=== PATIENT | female | born 1970 | race American Indian/Alaskan Native ===

== ENCOUNTER 2018-12-04 09:57 | Emergency (ER) | payer SELFPAY ==
[2018-12-04] MEDS ORDERED: NORMODYNE PO ONE (10:50)
--- NOTE | 2018-12-04 10:57 | Emergency Department Report ---
ED General Adult HPI - General Chief complaint: High BP Stated complaint: HBP Time Seen by Provider: 12/04/18 10:31 Source: patient Mode of arrival: Ambulatory Limitations: No Limitations - History of Present Illness Initial comments: Mrs. Rubio is a 48 -year-old female with history of tobacco abuse who presents with elevated blood pressure reading. During a routine dental appointment, it was discovered that she had severely elevated blood pressure. Her blood pressure in the emergency Department is currently 216/111. She has not primary care as an adult. Never prevously diagnosed with HTN. SHe does not have a physician. She recently obtained health Insurance. She Is Currently Symptom-Free. She Does Not Know Her Family Medical History. She Grew up in [place]. 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 No Recent Weight Loss. No Headache. No Visual Changes. -: unknown Severity scale (0 -10): 0 Improves with: none Worsens with: none Associated Symptoms: denies other symptoms Treatments Prior to Arrival: none - Related Data Previous Rx's Medication Instructions Recorded Last Taken Type amLODIPine [Norvasc] 5 mg PO DAILY 30 Days #30 tab 12/04/18 Unknown Rx hydroCHLOROthiazide [HCTZ] 25 mg PO QDAY 30 Days #30 tablet 12/04/18 Unknown Rx Allergies Allergy/AdvReac Type Severity Reaction Status Date / Time No Known Allergies Allergy Verified 12/04/18 10:52 ED Review of Systems ROS: Stated complaint: HBP Other details as noted in HPI Comment: All other systems reviewed and negative Constitutional: denies: fever, malaise Respiratory: denies: shortness of breath Cardiovascular: denies: chest pain Gastrointestinal: denies: abdominal pain Neurological: denies: headache, numbness, paresthesias, abnormal gait ED Past Medical Hx - Past Medical History Previous Medical History?: No Hx Arthritis: No - Surgical History Past Surgical History?: No - Social History Smoking Status: Heavy Tobacco Smoker Substance Use Type: None - Medications Home Medications: Home Medications Medication Instructions Recorded Confirmed Last Taken Type amLODIPine [Norvasc] 5 mg PO DAILY 30 Days #30 tab 12/04/18 Unknown Rx hydroCHLOROthiazide [HCTZ] 25 mg PO QDAY 30 Days #30 tablet 12/04/18 Unknown Rx ED Physical Exam - General Limitations: No Limitations General appearance: alert, in no apparent distress - Head Head exam: Present: atraumatic, normocephalic - Eye Eye exam: Present: normal appearance - ENT ENT exam: Present: mucous membranes moist - Neck Neck exam: Present: normal inspection, full ROM - Respiratory Respiratory exam: Present: normal lung sounds bilaterally. Absent: respiratory distress, wheezes, rales, rhonchi - Cardiovascular Cardiovascular Exam: Present: regular rate, normal rhythm, normal heart sounds. Absent: systolic murmur, diastolic murmur, rubs, gallop - GI/Abdominal GI/Abdominal exam: Present: soft, normal bowel sounds. Absent: distended, tenderness, guarding, rebound - Extremities Exam Extremities exam: Present: normal inspection - Back Exam Back exam: Present: normal inspection - Neurological Exam Neurological exam: Present: alert, oriented X3 - Psychiatric Psychiatric exam: Present: normal affect, normal mood - Skin Skin exam: Present: warm, dry, intact, normal color. Absent: rash ED Course Vital Signs 12/04/18 12/04/18 12/04/18 10:02 10:38 10:39 Temperature 98.3 F 98.5 F Pulse Rate 98 H 88 Respiratory 18 18 18 Rate Blood Pressure 216/111 Blood Pressure 187/108 [Right] O2 Sat by Pulse 100 100 100 Oximetry ED Medical Decision Making - Medical Decision Making Mr. Rubio is a healthy 48-year-old female who presents with new diagnosis of hypertension after routine evaluation at dentist office. I have prescribed amlodipine hydrocodone. I provided extensive verbal and written education regarding the diagnosis and treatment of hypertension. According to current emergency care guidelines, further diagnostics are not indicated in a patient with asymptomatic hypertension. She received dose by mouth labetalol to the ED. She understands to have blood pressure rechecked within the next 2 weeks. Without treatment repeat blood pressure 187/108 Critical care attestation.: If time is entered above; I have spent that time in minutes in the direct care of this critically ill patient, excluding procedure time. ED Disposition Clinical Impression: Asymptomatic hypertensive urgency Disposition: DC-01 TO HOME OR SELFCARE Is pt being admited?: No Does the pt Need Aspirin: No Condition: Stable Instructions: Hypertension (ED) Prescriptions: hydroCHLOROthiazide [HCTZ] 25 mg PO QDAY 30 Days #30 tablet amLODIPine [Norvasc] 5 mg PO DAILY 30 Days #30 tab Referrals: LASHELL UGALDE MD [Referring] - 3-5 Days PRAFUL ASCENCIO MD [Staff Physician] - 3-5 Days Forms: Work/School Release Form(ED)
[2018-12-04 12:24] VITALS: BP 157/98
== END 2018-12-04 12:53 | disposition home or self-care (01) ==
LOC: ED 09:57
DX: I16.0 Hypertensive urgency (principal); F17.200 Nicotine dependence, unspecified, uncomplicated
CPT/HCPCS: 99282

== ENCOUNTER 2019-07-17 13:55 | Emergency (ER) | payer OTHER ==
--- NOTE | 2019-07-17 14:23 | Emergency Department Report ---
Blank Doc - Documentation Documentation: 49-year-old female that presents with uncontrolled HTN and was sent by PCP. This initial assessment/diagnostic orders/clinical plan/treatment(s) is/are subject to change based on patient's health status, clinical progression and re- assessment by fellow clinical providers in the ED. Further treatment and workup at subsequent clinical providers discretion. Patient/guardians urged not to elope from the ED as their condition may be serious if not clinically assessed and managed. Initial orders include: 1- Patient sent to [facility] for further evaluation and treatment 2- labs 3- UA
[2019-07-17 14:45] LABS: Mucus,Urine FEW /HPF; WBC,Urine < 1.0 /HPF (0.0-6.0)
[2019-07-17 14:48] LABS: HCG Qualitative,Urine Negative (Negative)
[2019-07-17 14:49] LABS: Bilirubin,Urine NEG (Negative); Blood,Urine NEG (Negative); Color,Urine Straw (Yellow); Protein,Urine <15 mg/dL mg/dL (Negative); Urobilinogen,Urine < 2.0 mg/dL (<2.0)
[2019-07-17 15:21] LABS: Eosinophils # (Auto) 0.1 K/mm3 (0.0-0.4); Eosinophils % (Auto) 1.5 % (0.0-4.3); Hematocrit 36.3 % (30.3-42.9); Hemoglobin 11.9 gm/dl (10.1-14.3); Lymphocytes # (Auto) 1.3 K/mm3 (1.2-5.4); Mean Corpuscular HGB Conc 33 % (30-34); Monocytes # (Auto) 0.5 K/mm3 (0.0-0.8); Monocytes % (Auto) 9.7 % (0.0-7.3); Platelet Count 383 K/mm3 (140-440); Red Blood Count 5.67 M/mm3 (3.65-5.03)
[2019-07-17 15:26] LABS: Mean Corpuscular Volume 64 fl (79-97)
[2019-07-17 15:27] LABS: BUN/Creatinine Ratio 10; Blood Urea Nitrogen 6 mg/dL (7-17); Calcium 9.7 mg/dL (8.4-10.2); Hemolysis Index 3; Red Cell Distribution Width 21.8 % (13.2-15.2)
--- NOTE | 2019-07-17 15:52 | Emergency Department Report ---
ED General Adult HPI - General Chief complaint: High BP Stated complaint: BLOOD PRESSURE Time Seen by Provider: 07/17/19 14:22 Source: patient Mode of arrival: Ambulatory Limitations: No Limitations - History of Present Illness Initial comments: 49-year-old female presents to ED for elevated blood pressure. Patient states she was at a dentist's appointment and was told that her blood pressure was high and that she needed medical attention. Patient reports being diagnosed with hypertension in the past. States she was given a prescription for blood pressure medication, 1 month supply, from the emergency room, but never followed up outpatient. Patient is asymptomatic, denies headache, dizziness, chest pain, shortness of breath. -: This afternoon Associated Symptoms: denies other symptoms. denies: chest pain, headaches, nausea/vomiting, shortness of breath - Related Data Previous Rx's Medication Instructions Recorded Last Taken Type amLODIPine 5 mg PO DAILY 30 Days #30 tab 12/04/18 Unknown Rx hydroCHLOROthiazide [HCTZ] 25 mg PO QDAY 30 Days #30 tablet 07/17/19 Unknown Rx Allergies Allergy/AdvReac Type Severity Reaction Status Date / Time No Known Allergies Allergy Verified 12/04/18 10:52 ED Review of Systems ROS: Stated complaint: BLOOD PRESSURE Other details as noted in HPI Comment: All other systems reviewed and negative Respiratory: denies: shortness of breath Cardiovascular: denies: chest pain Neurological: denies: headache, weakness, numbness ED Past Medical Hx - Past Medical History Previous Medical History?: Yes Hx Hypertension: Yes Hx Arthritis: No - Surgical History Past Surgical History?: No - Social History Smoking Status: Current Every Day Smoker Substance Use Type: None - Medications Home Medications: Home Medications Medication Instructions Recorded Confirmed Last Taken Type amLODIPine 5 mg PO DAILY 30 Days #30 tab 12/04/18 Unknown Rx hydroCHLOROthiazide [HCTZ] 25 mg PO QDAY 30 Days #30 tablet 07/17/19 Unknown Rx ED Physical Exam - General Limitations: No Limitations General appearance: alert, in no apparent distress - Head Head exam: Present: atraumatic, normocephalic - Eye Eye exam: Present: normal appearance, EOMI - ENT ENT exam: Present: mucous membranes moist - Neck Neck exam: Present: normal inspection - Respiratory Respiratory exam: Present: normal lung sounds bilaterally. Absent: respiratory distress - Cardiovascular Cardiovascular Exam: Present: regular rate, normal rhythm - GI/Abdominal GI/Abdominal exam: Present: soft. Absent: distended, tenderness - Extremities Exam Extremities exam: Present: normal inspection - Neurological Exam Neurological exam: Present: alert, oriented X3, CN II-XII intact. Absent: motor sensory deficit - Psychiatric Psychiatric exam: Present: normal affect, normal mood - Skin Skin exam: Present: warm, dry, intact, normal color ED Course Vital Signs 07/17/19 07/17/19 07/17/19 13:59 14:22 15:11 Temperature 98.0 F 98 F Pulse Rate 90 91 H Respiratory 18 18 Rate Blood Pressure 196/114 196/114 201/117 Blood Pressure [Right] O2 Sat by Pulse 100 100 Oximetry 07/17/19 07/17/19 07/17/19 15:12 15:30 16:00 Temperature Pulse Rate 88 78 Respiratory 13 15 Rate Blood Pressure 206/131 196/109 Blood Pressure 201/117 [Right] O2 Sat by Pulse Oximetry 07/17/19 16:30 Temperature Pulse Rate 83 Respiratory 14 Rate Blood Pressure 193/119 Blood Pressure [Right] O2 Sat by Pulse Oximetry ED Medical Decision Making - Lab Data Result diagrams: 07/17/19 14:48 07/17/19 14:48 - Medical Decision Making Asymptomatic hypertension. Labs normal. Prescription given for antihypertensives. Outpatient follow-up advised. Return precautions given. Critical care attestation.: If time is entered above; I have spent that time in minutes in the direct care of this critically ill patient, excluding procedure time. ED Disposition Clinical Impression: Uncontrolled hypertension Disposition: - TO HOME OR SELFCARE Is pt being admited?: No Condition: Stable Instructions: Heart Healthy Diet (ED), Hypertension (ED) Prescriptions: hydroCHLOROthiazide [HCTZ] 25 mg PO QDAY 30 Days #30 tablet Referrals: MICHELLE BROOKS MD [Staff Physician] - 3-5 Days [facility] [Outside] - 3-5 Days [facility] [Provider Group] - 3-5 Days Forms: Work/School Release Form(ED) Time of Disposition: 15:49
[2019-07-17 16:39] VITALS: BP 193/119
== END 2019-07-17 16:57 | disposition home or self-care (01) ==
LOC: ED 13:55
DX: I10 Essential (primary) hypertension (principal); M19.90 Unspecified osteoarthritis, unspecified site; F17.200 Nicotine dependence, unspecified, uncomplicated; Z79.899 Other long term (current) drug therapy
CPT/HCPCS: 36415; 80048; 81001; 81025; 85025